=== PATIENT | male | born 1965 | race Caucasian/White ===

== ENCOUNTER 2017-05-27 16:11 | Emergency (ER) | payer OTHER ==
[~2017-05-27] VITALS: Ht 175.3 cm; Wt 100.0 kg
[2017-05-27] MEDS ORDERED: KETOROLAC 30MG/ML VIAL IV STA (17:02)
[2017-05-27] MEDS ORDERED: SODIUM CHLORIDE 0.9% 1,000 ML IV ONE ×2 (17:02→18:15)
[2017-05-27 17:05] VITALS: BP 142/89
[2017-05-27 17:30] LABS: BASOPHILS % 0.6 % (0.0-2.0); EOSINOPHILS % 2.2 % (0.0-5.0); HEMATOCRIT. 49.9 % (42.0-52.0); HEMOGLOBIN. 17.2 g/dL (14.0-18.0); LYMPHOCYTES % 26.9 % (20.0-50.0); MEAN CORPUSCULAR HEMOGLOBIN 29.8 pg (28.0-32.0); MEAN CORPUSCULAR VOLUME 86.7 fL (80.0-94.0); MEAN PLATELET VOLUME 8.4 fl (7.4-10.4); MONOCYTES % 8.1 % (2.0-8.0); NEUTROPHILS % 62.2 % (40.0-76.0); PLATELET 323 x1000/uL (130-400); RED BLOOD CELL COUNT 5.76 mill/uL (4.7-6.1); RED CELL DISTRIBUTION WIDTH 14.5 % (11.6-14.6)
[2017-05-27 17:36] LABS: PROTHROMBIN TIME 10.1 sec (9.4-11.6)
[2017-05-27 17:39] LABS: CHLORIDE 90 mEq/L (98-107)
[2017-05-27 17:41] LABS: BETA HYDROXYBUTYRATE 0.9 mMol/L (0.0-0.3)
[2017-05-27 17:50] LABS: CLARITY URINE CLEAR (CLEAR); COLOR URINE YELLOW (YELLOW); KETONES URINE 1+ (NEGATIVE); LEUKOCYTE ESTERASE URINE NEGATIVE (NEGATIVE); NITRITE URINE NEGATIVE (NEGATIVE); OCCULT BLOOD URINE NEGATIVE (NEGATIVE); PROTEIN URINE NEGATIVE (NEGATIVE); SPECIFIC GRAVITY URINE 1.034 (1.005-1.030); UROBILINOGEN URINE 0.2 E.U./dL (0.2-1.0)
[2017-05-27] MEDS ORDERED: CEPHALEXIN 500MG CAPSULE PO ONE (18:15)
[2017-05-27] MEDS ORDERED: INSULIN REGULAR (HUMULIN R) 300UNITS/3ML IV ONE (18:15)
[2017-05-28] MEDS ORDERED: [UNRECOGNIZED DRUG - CODE] IM (15:12)
[2017-05-28] MEDS ORDERED: AMPH20CA PO (15:13)
[2017-05-28] MEDS ORDERED: ALPR2TAB2 PO (15:14)
[2017-05-28] MEDS ORDERED: INSU100V3 SUBCUT (15:16)
[2017-05-28] MEDS ORDERED: INSNPH SUBCUT (15:16)
[2017-05-28] MEDS ORDERED: NPH,100V SQ (15:17)
[2017-05-29] MEDS ORDERED: OXYC10TA58 PO (03:52)
== END 2017-05-27 18:32 | disposition left against medical advice (07) ==
LOC: ER 16:30
DX: E11.65 Type 2 diabetes mellitus with hyperglycemia (principal); Z79.4 Long term (current) use of insulin; F17.210 Nicotine dependence, cigarettes, uncomplicated; Z99.3 Dependence on wheelchair
CPT/HCPCS: 36415; 80053; 81003; 82010; 82962; 85025; 85610; 93005; 99285; J1885; J7030; Z7610

== ENCOUNTER 2017-05-31 21:56 | Emergency (ER) | payer OTHER ==
[~2017-05-31] VITALS: Ht 190.5 cm; Wt 100.0 kg
[~2017-05-31 21:56] MED LIST: ALPR2TAB2 PO; AMPH20CA PO; INSU100V3 SUBCUT; NPH,100V SQ; OXYC10TA58 PO; [UNRECOGNIZED DRUG - CODE] IM
[2017-05-31 23:06] VITALS: BP 125/91
== END 2017-06-01 04:04 | disposition left against medical advice (07) ==
LOC: ER 21:56
DX: Z53.21 Procedure and treatment not carried out due to patient leaving prior to being seen by health care provider (principal); F17.210 Nicotine dependence, cigarettes, uncomplicated

== ENCOUNTER 2017-06-01 04:20 | Emergency (ER) | payer OTHER ==
[~2017-06-01] VITALS: Ht 182.9 cm; Wt 105.0 kg
[2017-06-01] MEDS ORDERED: SODIUM CHLORIDE 0.9% 1,000 ML IV ONE ×2 (08:58→12:00)
[2017-06-01 09:22] LABS: CLARITY URINE CLEAR (CLEAR); COLOR URINE YELLOW (YELLOW); KETONES URINE NEGATIVE (NEGATIVE); LEUKOCYTE ESTERASE URINE NEGATIVE (NEGATIVE); NITRITE URINE NEGATIVE (NEGATIVE); OCCULT BLOOD URINE NEGATIVE (NEGATIVE); PROTEIN URINE NEGATIVE (NEGATIVE); SPECIFIC GRAVITY URINE 1.033 (1.005-1.030); UROBILINOGEN URINE 0.2 E.U./dL (0.2-1.0)
[2017-06-01 09:24] LABS: BASOPHILS % 0.4 % (0.0-2.0); EOSINOPHILS % 3.5 % (0.0-5.0); HEMOGLOBIN. 15.3 g/dL (14.0-18.0); LYMPHOCYTES % 22.1 % (20.0-50.0); MEAN CORPUSCULAR HEMOGLOBIN 28.9 pg (28.0-32.0); MEAN CORPUSCULAR VOLUME 86.8 fL (80.0-94.0); MEAN PLATELET VOLUME 7.9 fl (7.4-10.4); MONOCYTES % 7.3 % (2.0-8.0); NEUTROPHILS % 66.7 % (40.0-76.0); PLATELET 267 x1000/uL (130-400); RED CELL DISTRIBUTION WIDTH 15.1 % (11.6-14.6)
[2017-06-01 09:31] LABS: PROTHROMBIN TIME 10.2 sec (9.4-11.6)
[2017-06-01 09:32] LABS: *AMPHETAMINES SCREEN URINE NEGATIVE (NEGATIVE); *BARBITURATES SCREEN URINE NEGATIVE (NEGATIVE); *BENZODIAZEPINES SCREEN URINE PRESUMTIVE POSITIVE (NEGATIVE); *COCAINE SCREEN URINE NEGATIVE (NEGATIVE); CANNABINOID URINE SCREEN NEGATIVE (NEGATIVE); METHADONE URINE SCREEN NEGATIVE (NEGATIVE); OPIATES URINE SCREEN NEGATIVE (NEGATIVE); PHENCYCLIDINE URINE SCREEN NEGATIVE (NEGATIVE)
[2017-06-01 09:33] LABS: CHLORIDE 97 mEq/L (98-107)
[2017-06-01 09:34] LABS: ETHANOL BLOOD < 10 mg/dL
[2017-06-01] MEDS ORDERED: INSULIN REGULAR (HUMULIN R) 300UNITS/3ML IV ONE (12:00)
[2017-06-01] MEDS ORDERED: IBUPROFEN 600MG TABLET PO ONE (13:45)
[2017-06-01 16:30] VITALS: BP 135/83
== END 2017-06-01 16:56 | disposition home or self-care (01) ==
LOC: ER 04:20
DX: E11.65 Type 2 diabetes mellitus with hyperglycemia (principal); L03.115 Cellulitis of right lower limb; I25.10 Atherosclerotic heart disease of native coronary artery without angina pectoris; R74.0 Nonspecific elevation of levels of transaminase and lactic acid dehydrogenase [LDH]; I10 Essential (primary) hypertension; Z89.619 Acquired absence of unspecified leg above knee; Z99.3 Dependence on wheelchair
CPT/HCPCS: 36415; 80053; 80305; 81003; 82962; 83690; 85025; 85610; 96361; 96374; 99284; G0482; J1815; J7030; Z7610